=== PATIENT | male | born 1945 | race Caucasian/White ===

== ENCOUNTER 2017-12-16 20:06 | Emergency (ER) | payer MEDICARE ==
[~2017-12-16] VITALS: Ht 185.4 cm; Wt 87.5 kg
--- OUTSIDE RECORDS SUMMARY | 2017-12-16 20:09 | XMS REPORT ---
Author Author [facility] Address Unknown Phone Unavailable Care Team Providers Care Diving Board Assembler Name Role Phone MAYCO TREVIZO Unavailable Unavailable Problems This patient has no known problems. Allergies, Adverse Reactions, Alerts This patient has no known allergies or adverse reactions. Medications This patient has no known medications. Results Test Description Test Time Test Comments Text Results Atomic Results Result Comments TISSUE EXAM 2016-11-15 12:54:00 Surgical Pathology Report Case: [id number] Authorizing Provider: Malcolm Trevizo MD Collected: 11/06/2016 1032 Ord ering Location: [facility] Received: 11/06/2016 1135 SERVICES Pathologist: Georgia Love MD Specimen: Kidney, Left KIDNEY, LEFT, RADICAL NEPHRECTOMY: - RENAL CELL CARCINOMA, CLEAR CELL TYPE, BENY NUCLEAR GRADE 2, TUMOR FOCALLY PRESENT IN RENAL SINUS ADIPOSE TISSUE (SEE COMMENT) - GREATEST DIMENSION: 7.5CM - NEGATIVE FOR LYMPHOVASCULAR INVASION - SURGICAL RESECTION MARGINS, FREE OF TUMOR - AJCC CLASSIFICATION (7TH EDITION) pT3a, Nx, Mx (SEE SYNOPTIC REPORT) Signing Pathologist Direct Phone Line: [phone] signed by Georgia Love MD on 11/15/2016 at 12:54 PMA small microscopic focus of tumor cells with surrounding capsule are located in the renal sinus adipose tissue (A11). This is best interpreted as extension into sinus fat. However, less likely, this could also represent tumor in a large vessel/vein. Intradepartmental consultation: Dr. Demarco Mario has reviewed the slide A11 and concurs with the interpretation.KIDNEY: Nephrectomy, Partial or Radical (Kidney Res - All Specimens) Specimen Site: Kidney structureSPECIMEN Procedure: Radical nephrectomy Specimen Laterality: Left Tumor Site: Lower pole Tumor Focality: Unifocal Macroscopic Extent of Tumor: Tumor limited to kidneyTUMOR Histologic Type: Clear cell renal cell carcinoma Sarcomatoid Features: Not identified Histologic Grade (Beny Nuclear Grade): G2: Nuclei slightly irregular, approximately 15 microns; nucleoli evidentEXTENT Tumor Size (largest tumor if multiple): Greatest dimension (cm): 7.5 cm Additional Dimension (cm): 6 cm Additional Dimension (cm): 5.5 cm Microscopic Tumor Extension: Tumor extension into renal sinusMARGINS Margin Status: Margins uninvolved by invasive carcinomaACCESSORY FINDINGS Tumor Necrosis (any amount): Not identified Lymph-Vascular Invasion: Not identifiedSTAGE (pTNM) Primary Tumor (pT): pT3a: Tumor grossly extends into the renal vein or its segmental (muscle containing) branches, or tumor invades perirenal and / or renal sinus fat but not beyond Gerota's fascia Regional Lymph Nodes (pN): pNX: Regional lymph nodes cannot be assessed Status of Regional Lymph Nodes: No nodes submitted or found Distant Metastasis (pM): Not [id number] kidney tumorLeft kidneyReceived fresh labeled "kidney, left" is an 845 gm, 23.0 x 10.0 x 9.0 cm left radical nephrectomy specimen with an attached 9.0 cm in length x 0.5 cm in diameter ureter. The adrenal gland is not present. The kidney itself m easures 11.0 x 8.0 x 3.0 cm. The kidney is bivalved to reveal a 7.5 x 6.0 x 5.5 cm ill-defined yellow-gold to navarrete-white, rubbery, lobulated mass in the lower pole. The mass abuts the capsule but does not appear to invade into it or the attached perirenal adipose tissue. The mass abuts the pelvis but does not appear to invade into the calyceal system or renal sinus. The surrounding uninvolved renal parenchyma is dark brown, homogeneous, dense and unremarkable. No other discrete masses are identified. No lymph nodes are identified. Section code: A1, parallel ureteral and vascular resection margin; A2-A6, automotive leasing sales representative sections of mass abutting capsule; A7-10, mass adjacent fat; A11, automotive leasing sales representative section of mass abutting pelvis and calyceal system; A12-A13, automotive leasing sales representative sections of mass with uninvolved parenchyma; A14-A16, automotive leasing sales representative sections of renal sinus; A17-A18, uninvolved parenchyma. DB/plPerformed. CBC W/PLT COUNT & AUTO DIFFERENTIAL 2016-11-14 12:11:00 WHITE BLOOD CELL COUNT (BEAKER) (test nucv=802) 11.0 K/ L 3.5-10.5 RED BLOOD CELL COUNT (BEAKER) (test jxfc=301) 3.63 M/ L 4.63-6.08 HEMOGLOBIN (BEAKER) (test hdtp=375) 11.5 GM/DL 13.7-17.5 HEMATOCRIT (BEAKER) (test vmjj=443) 34.0 % 40.1-51.0 MEAN CORPUSCULAR VOLUME (BEAKER) (test leyz=150) 93.7 fL 79.0-92.2 MEAN CORPUSCULAR HEMOGLOBIN (BEAKER) (test iago=813) 31.7 pg 25.7-32.2 MEAN CORPUSCULAR HEMOGLOBIN CONC (BEAKER) (test kids=319) 33.8 GM/DL 32.3-36.5 RED CELL DISTRIBUTION WIDTH (BEAKER) (test pwox=150) 13.9 % 11.6-14.4 PLATELET COUNT (BEAKER) (test ghfb=016) 356 K/CU MM 150-450 MEAN PLATELET VOLUME (BEAKER) (test tbht=014) 9.1 fL 9.4-12.4 NUCLEATED RED BLOOD CELLS (BEAKER) (test pvre=958) 0 /100 WBC 0-0 NEUTROPHILS RELATIVE PERCENT (BEAKER) (test zvvb=881) 55 % LYMPHOCYTES RELATIVE PERCENT (BEAKER) (test olec=160) 28 % MONOCYTES RELATIVE PERCENT (BEAKER) (test iiwc=337) 13 % EOSINOPHILS RELATIVE PERCENT (BEAKER) (test xvwz=447) 3 % BASOPHILS RELATIVE PERCENT (BEAKER) (test yiqr=589) 0 % NEUTROPHILS ABSOLUTE COUNT (BEAKER) (test jnkg=201) 6.06 K/ L 1.78-5.38 LYMPHOCYTES ABSOLUTE COUNT (BEAKER) (test huai=815) 3.04 K/ L 1.32-3.57 MONOCYTES ABSOLUTE COUNT (BEAKER) (test yzoy=775) 1.40 K/ L 0.30-0.82 EOSINOPHILS ABSOLUTE COUNT (BEAKER) (test telp=874) 0.27 K/ L 0.04-0.54 BASOPHILS ABSOLUTE COUNT (BEAKER) (test yxuy=036) 0.04 K/ L 0.01-0.08 IMMATURE GRANULOCYTES-RELATIVE PERCENT (BEAKER) (test iyks=2895) 2 % 0-1 (MANUAL DIFFERENTIAL)2016-11-14 12:11:00* Test Item Value Reference Range Comments TOTAL COUNTED (BEAKER) (test nvya=2039) WBC MORPHOLOGY (BEAKER) (test leig=070) Normal PLT MORPHOLOGY (BEAKER) (test uuhu=862) Normal ANISOCYTOSIS (BEAKER) (test rhik=534) 1+ few POLYCHROMATOPHILLIC RBCS(BEAKER) (test uujw=048) 1+ few BASIC METABOLIC [id number] 06:23:00* Test Item Value Reference Range Comments SODIUM (BEAKER) (test tarx=840) 135 meq/L 136-145 POTASSIUM (BEAKER) (test xyhp=862) 3.4 meq/L 3.5-5.1 CHLORIDE (BEAKER) (test bjyz=564) 103 meq/L 98-107 CO2 (BEAKER) (test bgou=905) 26 meq/L 22-29 BLOOD UREA NITROGEN (BEAKER) (test awyb=549) 11 mg/dL 7-21 CREATININE (BEAKER) (test rcik=799) 0.87 mg/dL 0.57-1.25 GLUCOSE RANDOM (BEAKER) (test qcxa=718) 111 mg/dL 70-105 CALCIUM (BEAKER) (test qexd=204) 8.1 mg/dL 8.4-10.2 EGFR (BEAKER) (test uhsl=7132) 86 mL/min/1.73 sq m ESTIMATED GFR IS NOT ACCURATE CREATININE CLEARANCE IN PREDICTING GLOMERULAR FILTRATION RATE. ESTIMATED GFR IS NOT APPLICABLE FOR DIALYSIS PATIENTS. BASIC METABOLIC [id number] 05:56:00* Test Item Value Reference Range Comments SODIUM (BEAKER) (test zlps=085) 135 meq/L 136-145 POTASSIUM (BEAKER) (test yiam=058) 2.9 meq/L 3.5-5.1 CHLORIDE (BEAKER) (test glcy=135) 99 meq/L 98-107 CO2 (BEAKER) (test wvtm=066) 30 meq/L 22-29 BLOOD UREA NITROGEN (BEAKER) (test vmnp=611) 12 mg/dL 7-21 CREATININE (BEAKER) (test cuxf=985) 0.85 mg/dL 0.57-1.25 GLUCOSE RANDOM (BEAKER) (test cktb=101) 113 mg/dL 70-105 CALCIUM (BEAKER) (test tscz=533) 8.3 mg/dL 8.4-10.2 EGFR (BEAKER) (test luia=0250) 88 mL/min/1.73 sq m ESTIMATED GFR IS NOT ACCURATE CREATININE CLEARANCE IN PREDICTING GLOMERULAR FILTRATION RATE. ESTIMATED GFR IS NOT APPLICABLE FOR DIALYSIS PATIENTS. CBC W/PLT COUNT & AUTO [id number] 05:28:00* Test Item Value Reference Range Comments WHITE BLOOD CELL COUNT (BEAKER) (test uplf=569) 11.8 K/ L 3.5-10.5 RED BLOOD CELL COUNT (BEAKER) (test uhte=787) 3.82 M/ L 4.63-6.08 HEMOGLOBIN (BEAKER) (test hbsp=411) 12.2 GM/DL 13.7-17.5 HEMATOCRIT (BEAKER) (test mbkj=311) 35.5 % 40.1-51.0 MEAN CORPUSCULAR VOLUME (BEAKER) (test nmln=776) 92.9 fL 79.0-92.2 MEAN CORPUSCULAR HEMOGLOBIN (BEAKER) (test glww=136) 31.9 pg 25.7-32.2 MEAN CORPUSCULAR HEMOGLOBIN CONC (BEAKER) (test cucr=289) 34.4 GM/DL 32.3-36.5 RED CELL DISTRIBUTION WIDTH (BEAKER) (test njte=517) 13.6 % 11.6-14.4 PLATELET COUNT (BEAKER) (test qtgn=351) 351 K/CU MM 150-450 MEAN PLATELET VOLUME (BEAKER) (test pibi=696) 9.2 fL 9.4-12.4 NUCLEATED RED BLOOD CELLS (BEAKER) (test whrc=417) 0 /100 WBC 0-0 NEUTROPHILS RELATIVE PERCENT (BEAKER) (test nhss=057) 63 % LYMPHOCYTES RELATIVE PERCENT (BEAKER) (test tgxr=977) 21 % MONOCYTES RELATIVE PERCENT (BEAKER) (test ylkg=562) 13 % EOSINOPHILS RELATIVE PERCENT (BEAKER) (test ndpd=059) 2 % BASOPHILS RELATIVE PERCENT (BEAKER) (test ucqj=306) 0 % NEUTROPHILS ABSOLUTE COUNT (BEAKER) (test uqdb=896) 7.35 K/ L 1.78-5.38 LYMPHOCYTES ABSOLUTE COUNT (BEAKER) (test epuu=384) 2.47 K/ L 1.32-3.57 MONOCYTES ABSOLUTE COUNT (BEAKER) (test vxin=667) 1.52 K/ L 0.30-0.82 EOSINOPHILS ABSOLUTE COUNT (BEAKER) (test ryis=988) 0.24 K/ L 0.04-0.54 BASOPHILS ABSOLUTE COUNT (BEAKER) (test igva=274) 0.04 K/ L 0.01-0.08 IMMATURE GRANULOCYTES-RELATIVE PERCENT (BEAKER) (test zfjv=4229) 1 % 0-1 BASIC METABOLIC [id number] 07:05:00* Test Item Value Reference Range Comments SODIUM (BEAKER) (test fmvv=999) 132 meq/L 136-145 POTASSIUM (BEAKER) (test cobp=977) 3.0 meq/L 3.5-5.1 CHLORIDE (BEAKER) (test kcfu=207) 95 meq/L 98-107 CO2 (BEAKER) (test mhvq=787) 28 meq/L 22-29 BLOOD UREA NITROGEN (BEAKER) (test ccqh=798) 14 mg/dL 7-21 CREATININE (BEAKER) (test jpia=515) 0.95 mg/dL 0.57-1.25 GLUCOSE RANDOM (BEAKER) (test xfmh=577) 99 mg/dL 70-105 CALCIUM (BEAKER) (test pjny=535) 8.5 mg/dL 8.4-10.2 EGFR (BEAKER) (test oshc=2819) 78 mL/min/1.73 sq m ESTIMATED GFR IS NOT ACCURATE CREATININE CLEARANCE IN PREDICTING GLOMERULAR FILTRATION RATE. ESTIMATED GFR IS NOT APPLICABLE FOR DIALYSIS PATIENTS. CBC W/PLT COUNT & AUTO [id number] 07:05:00* Test Item Value Reference Range Comments WHITE BLOOD CELL COUNT (BEAKER) (test guec=193) 12.5 K/ L 3.5-10.5 RED BLOOD CELL COUNT (BEAKER) (test invk=358) 3.75 M/ L 4.63-6.08 HEMOGLOBIN (BEAKER) (test okjp=305) 12.0 GM/DL 13.7-17.5 HEMATOCRIT (BEAKER) (test kvte=911) 35.1 % 40.1-51.0 MEAN CORPUSCULAR VOLUME (BEAKER) (test uzvd=224) 93.6 fL 79.0-92.2 MEAN CORPUSCULAR HEMOGLOBIN (BEAKER) (test ygql=165) 32.0 pg 25.7-32.2 MEAN CORPUSCULAR HEMOGLOBIN CONC (BEAKER) (test qbhu=974) 34.2 GM/DL 32.3-36.5 RED CELL DISTRIBUTION WIDTH (BEAKER) (test pcbz=254) 13.6 % 11.6-14.4 PLATELET COUNT (BEAKER) (test csdw=756) 326 K/CU MM 150-450 MEAN PLATELET VOLUME (BEAKER) (test nwnh=857) 9.1 fL 9.4-12.4 NUCLEATED RED BLOOD CELLS (BEAKER) (test imtt=591) 0 /100 WBC 0-0 NEUTROPHILS RELATIVE PERCENT (BEAKER) (test ywhp=302) 70 % LYMPHOCYTES RELATIVE PERCENT (BEAKER) (test uqlp=332) 16 % MONOCYTES RELATIVE PERCENT (BEAKER) (test uaxj=733) 12 % EOSINOPHILS RELATIVE PERCENT (BEAKER) (test qjlb=118) 1 % BASOPHILS RELATIVE PERCENT (BEAKER) (test dteb=820) 0 % NEUTROPHILS ABSOLUTE COUNT (BEAKER) (test ymrm=485) 8.74 K/ L 1.78-5.38 LYMPHOCYTES ABSOLUTE COUNT (BEAKER) (test xgmg=137) 1.98 K/ L 1.32-3.57 MONOCYTES ABSOLUTE COUNT (BEAKER) (test nhhi=294) 1.53 K/ L 0.30-0.82 EOSINOPHILS ABSOLUTE COUNT (BEAKER) (test otgr=393) 0.16 K/ L 0.04-0.54 BASOPHILS ABSOLUTE COUNT (BEAKER) (test hkcx=208) 0.02 K/ L 0.01-0.08 IMMATURE GRANULOCYTES-RELATIVE PERCENT (BEAKER) (test tnzu=7845) 1 % 0-1 CT, [id number] 05:03:00FINAL REPORT CT, ABDOMEN \\T\\ PELVIS, WITHOUT IV CONTRAST INDICATION: "Bowel obstruction, low-gradeConcern for bowel perforation. Discussed with general surgery and radiology Dr. Fish. Please do with RECTAL contrast. Please page [phone] with any concerns/questions. Please do first thing in AM for appropriate ti" COMPARISON: CT abdomen and pelvis from yesterday TECHNIQUE: Noncontrast axially oriented images were obtained from the diaphragms through the pelvis. Coronal and sagittal reformats were provided. DOSE REDUCTION: Dose modulation, iterative reconstruction, and/or weight-based adjustment of the mA/kV was utilized to reduce the radiation dose to as low as reasonably achievable. FINDINGS: Stable small bilateral pleural effusions with adjacent airspace disease, right greater than left. Postoperative changes from a left-sided nephrectomy. The oral contrast from the prior CT has passed through to the rectum. There is no extraluminal contrast and the left retroperitoneal collection with multiple foci of air almost certainly represents a normal postoperative collection and not sequelae of a bowel perforation.All other findings are unchanged compared to the prior exam with prominent air-filled, but nondilated loops of colon which likely reflect a mild ileus. No focal lytic or destructive bony process. IMP RESSION:The left retroperitoneal collection is almost certainly a normal postope rative collection. No bowel perforation. Signed: Castro Riuz MDReport Verifi ed Date/Time: 11/12/2016 05:03:23 Reading Location: [facility] C013X Ortho Consult Reading Room 05: 03 AM [id number] 22:50:00* Test Item Value Reference Range Comments LIPASE (BEAKER) (test jpbx=392) 8 U/L 8-78 [id number] 22:50:00* Test Item Value Reference Range Comments AMYLASE (BEAKER) (test bzpg=859) 22 U/L 25-125 COMPREHENSIVE METABOLIC [id number] 22:50:00* Test Item Value Reference Range Comments TOTAL PROTEIN (BEAKER) (test vffe=576) 6.6 gm/dL 6.0-8.3 ALBUMIN (BEAKER) (test oggm=6335) 3.2 g/dL 3.5-5.0 ALKALINE PHOSPHATASE (BEAKER) (test bxeq=603) 145 U/L 40-150 BILIRUBIN TOTAL (BEAKER) (test yvms=961) 0.9 mg/dL 0.2-1.2 SODIUM (BEAKER) (test mick=077) 129 meq/L 136-145 POTASSIUM (BEAKER) (test tuoa=787) 2.8 meq/L 3.5-5.1 CHLORIDE (BEAKER) (test ewvw=920) 92 meq/L 98-107 CO2 (BEAKER) (test hyob=512) 29 meq/L 22-29 BLOOD UREA NITROGEN (BEAKER) (test sxtq=220) 14 mg/dL 7-21 CREATININE (BEAKER) (test bcjp=520) 0.85 mg/dL 0.57-1.25 GLUCOSE RANDOM (BEAKER) (test acxp=973) 102 mg/dL 70-105 CALCIUM (BEAKER) (test jupc=517) 8.5 mg/dL 8.4-10.2 AST (SGOT) (BEAKER) (test eaah=327) 23 U/L 5-34 ALT (SGPT) (BEAKER) (test emop=439) 29 U/L 6-55 EGFR (BEAKER) (test mjfq=9019) 88 mL/min/1.73 sq m ESTIMATED GFR IS NOT ACCURATE CREATININE CLEARANCE IN PREDICTING GLOMERULAR FILTRATION RATE. ESTIMATED GFR IS NOT APPLICABLE FOR DIALYSIS PATIENTS. CBC W/PLT COUNT & AUTO [id number] 22:33:00* Test Item Value Reference Range Comments WHITE BLOOD CELL COUNT (BEAKER) (test wrmk=598) 12.3 K/ L 3.5-10.5 RED BLOOD CELL COUNT (BEAKER) (test hfrs=089) 3.80 M/ L 4.63-6.08 HEMOGLOBIN (BEAKER) (test fxvn=029) 12.1 GM/DL 13.7-17.5 HEMATOCRIT (BEAKER) (test jdoj=259) 35.1 % 40.1-51.0 MEAN CORPUSCULAR VOLUME (BEAKER) (test hrnq=031) 92.4 fL 79.0-92.2 MEAN CORPUSCULAR HEMOGLOBIN (BEAKER) (test wjan=104) 31.8 pg 25.7-32.2 MEAN CORPUSCULAR HEMOGLOBIN CONC (BEAKER) (test ekuc=494) 34.5 GM/DL 32.3-36.5 RED CELL DISTRIBUTION WIDTH (BEAKER) (test djzj=935) 13.3 % 11.6-14.4 PLATELET COUNT (BEAKER) (test nrit=927) 318 K/CU MM 150-450 MEAN PLATELET VOLUME (BEAKER) (test hhxy=877) 9.1 fL 9.4-12.4 NUCLEATED RED BLOOD CELLS (BEAKER) (test nkct=873) 0 /100 WBC 0-0 NEUTROPHILS RELATIVE PERCENT (BEAKER) (test qhaq=469) 72 % LYMPHOCYTES RELATIVE PERCENT (BEAKER) (test vbic=791) 14 % MONOCYTES RELATIVE PERCENT (BEAKER) (test vpon=361) 12 % EOSINOPHILS RELATIVE PERCENT (BEAKER) (test vxuf=569) 1 % BASOPHILS RELATIVE PERCENT (BEAKER) (test ukak=829) 0 % NEUTROPHILS ABSOLUTE COUNT (BEAKER) (test azgz=342) 8.80 K/ L 1.78-5.38 LYMPHOCYTES ABSOLUTE COUNT (BEAKER) (test wjwo=299) 1.75 K/ L 1.32-3.57 MONOCYTES ABSOLUTE COUNT (BEAKER) (test uudq=245) 1.48 K/ L 0.30-0.82 EOSINOPHILS ABSOLUTE COUNT (BEAKER) (test elmu=332) 0.07 K/ L 0.04-0.54 BASOPHILS ABSOLUTE COUNT (BEAKER) (test lvyx=030) 0.04 K/ L 0.01-0.08 IMMATURE GRANULOCYTES-RELATIVE PERCENT (BEAKER) (test qanr=3017) 1 % 0-1 CT, [id number] 22:07:00Significant distention with dilated small and large bowel on AAS. Please give oral contrast for study.Addendum BeginsREPORT STATUS:A I reviewed the case with the urologist, Dr. Trevizo, who explained that Surgicel was placed in the nephrectomy bed. The feculent material, described in the original report, is at the superior part of the retroperitoneal collection near the left nephrectomy bed and may in fact represent Surgicel intermixed with blood. The mid and lower part of the re troperitoneal collection are low density and may represent a sterile postoperati ve collection. As discussed with Dr. Trevizo, a repeat CT exam in approximately 12 ho urs, may be beneficial to see if any contrast from the colon has passed into the retroperitoneal collection. If contrast from the colon has not passed into the retroperitoneal collection a CT exam with rectally administered contrast would b e more sensitive. Signed: Lima Fish MDReport Verified Date/Time: 017 22:07:17 Reading Location: [facility] C013 Consult Reading RoomAddendum EndsFIN AL REPORT INDICATION:71-year-old male with abdominal dist ention. COMPARISON: None. TECHNIQUE: CT of the Abdomen and Pelvis WITHOUT intrav enous contrast. Enteric contrast was used. The exam was performed according to o ur department dose-optimization protocol, which includes automated exposure cont rol, adjustments of mA and kV according to patient size. Iterative reconstructio ns are also sometimes employed. FINDINGS:Patient is status post left nephrectomy . In the left retroperitoneal fat inferior to the nephrectomy bed and lateral to the left psoas muscle is a oblong collection of feculent material. The collecti on measures approximately 13 cm in length and up to 5 x 4 cm in cross-section. O n coronal image 64 there is suggestion of a communication between the collection and the left colon. Moderate increase in stool and gas burden in the right colon and transverse colon is noted. There is no bowel obstruction. No pneumoperiton eum. Liver, gallbladder, pancreas, and spleen are unremarkable. No upper abdomin al lymphadenopathy is demonstrated. 2 cm exophytic cyst of the interpole right k idney is noted. No gross renal mass or hydronephrosis. Adrenal glands are unrema rkable. Bladder was mildly distended the time of imaging and no bladder wall abn ormality is demonstrated. Small amount air in the bladder is presumably from anibal or instrumentation. Prostate gland is normal in size. No pelvic or retroperitone al lymphadenopathy is demonstrated. There is scattered moderate atherosclerotic plaque of the abdominal aorta. Abdominal aorta and iliac arteries are normal in caliber. Soft tissues are notable for moderate stranding of the suprapubic fat and small fat-containing periumbilical hernia. No suspicious osseous lesion is d emonstrated. At L5-S1 there is moderate to severe facet arthropathy. At L5-S1 an d L4-5 there is moderate to severe disc space loss and endplate spurring. Partia l imaging of the lower thorax demonstrates bilateral small pleural effusions. IM PRESSION: Status post left nephrectomy. Left retroperitoneal collection of fecul ent material with communication between the collection and the left colon. Sign ed: Lima Fish MDReport Verified Date/Time: 11/11/2016 20:06:23 Reading L ocation: [facility] C013W Consult Reading Room , ABDOMEN SERIES W/ UPRIGHT PA [id number] 13:47:00Reason for exam:->persistent ileusFINAL REPORT Four views abdomen and chest compared to November 07 Discussion: Bilateral apical pleural-parenchymal scarring and probable basilar atelectasis are again noted. Atelectasis may be minimally improved. I could not exclude small effusions. No pneumothorax. There is prominent air-filled large bowel throughout the abdomen. Conspicuous air-filled small bowel loops are also noted in the right abdomen. No gross evidence of free intraperitoneal air. Phleboliths are seen in the pelvis. IMPRESSIONS: Grossly similar bowel gas pattern. Signed: James Braga Verified Date/Time: 11/11/2016 13:47:25 Reading Location: [facility] C013W Consult Reading Room GLOBIN AND [id number] 11:11:00* Test Item Value Reference Range Comments HEMOGLOBIN (BEAKER) (test hgza=503) 12.5 GM/DL 13.7-17.5 HEMATOCRIT (BEAKER) (test ldxi=969) 36.0 % 40.1-51.0 RAD, CHEST, 1 VIEW, NON [id number] 08:46:00Reason for exam:->decreased 02 satsShould this be performed at the bedside?->YesFINAL REPORT Chest, one view. HISTORY: Hypoxia COMPARISON: Chest and abdominal radiographs from 11/07/2016 IMPRESSION: No significant interval change. Trace left pleural effusion and mild interstitial edema. Unchanged right infrahilar atelectasis. No new focal consolidation. No identifiable pneumothorax. Cardiomediastinal silhouette is grossly unremarkable. Signed: John De Dios Verified Date/Time: 11/09/2016 08:46:20 Reading Location: [facility] C013Y CT Body Reading Room Electronically signed by: JOHN DE DIOS on 0 11/09/2016 08:46 AM HEMOGLOBIN AND [id number] 07:10:00* Test Item Value Reference Range Comments HEMOGLOBIN (BEAKER) (test nagk=896) 11.8 GM/DL 13.7-17.5 HEMATOCRIT (BEAKER) (test npon=468) 35.3 % 40.1-51.0 BASIC METABOLIC [id number] 06:52:00* Test Item Value Reference Range Comments SODIUM (BEAKER) (test kazf=140) 132 meq/L 136-145 POTASSIUM (BEAKER) (test mfij=872) 3.8 meq/L 3.5-5.1 CHLORIDE (BEAKER) (test gjjt=576) 100 meq/L 98-107 CO2 (BEAKER) (test vtuv=754) 25 meq/L 22-29 BLOOD UREA NITROGEN (BEAKER) (test wpwk=465) 13 mg/dL 7-21 CREATININE (BEAKER) (test ovhj=799) 1.04 mg/dL 0.57-1.25 GLUCOSE RANDOM (BEAKER) (test lbzr=314) 111 mg/dL 70-105 CALCIUM (BEAKER) (test hsvo=611) 8.5 mg/dL 8.4-10.2 EGFR (BEAKER) (test drab=3369) 70 mL/min/1.73 sq m ESTIMATED GFR IS NOT ACCURATE CREATININE CLEARANCE IN PREDICTING GLOMERULAR FILTRATION RATE. ESTIMATED GFR IS NOT APPLICABLE FOR DIALYSIS PATIENTS. BASIC METABOLIC [id number] 05:24:00* Test Item Value Reference Range Comments SODIUM (BEAKER) (test mxwh=378) 134 meq/L 136-145 POTASSIUM (BEAKER) (test mdrd=706) 3.9 meq/L 3.5-5.1 CHLORIDE (BEAKER) (test zbuv=282) 103 meq/L 98-107 CO2 (BEAKER) (test rfcg=714) 23 meq/L 22-29 BLOOD UREA NITROGEN (BEAKER) (test jnql=688) 12 mg/dL 7-21 CREATININE (BEAKER) (test ajjs=275) 1.12 mg/dL 0.57-1.25 GLUCOSE RANDOM (BEAKER) (test bjml=893) 121 mg/dL 70-105 CALCIUM (BEAKER) (test ejir=306) 8.3 mg/dL 8.4-10.2 EGFR (BEAKER) (test wyej=7107) 64 mL/min/1.73 sq m ESTIMATED GFR IS NOT ACCURATE CREATININE CLEARANCE IN PREDICTING GLOMERULAR FILTRATION RATE. ESTIMATED GFR IS NOT APPLICABLE FOR DIALYSIS PATIENTS. HEMOGLOBIN AND [id number] 04:59:00* Test Item Value Reference Range Comments HEMOGLOBIN (BEAKER) (test csqt=708) 12.2 GM/DL 13.7-17.5 HEMATOCRIT (BEAKER) (test llkh=870) 36.1 % 40.1-51.0 RAD, ABDOMEN SERIES W/ UPRIGHT PA [id number] 16:52:00Reason for exam:-> acute abdominal series. n/v, distensionFINAL REPORT TECHNIQUE: Abdominal series with upright chest performed on 11/07/2016 CLINICAL HISTORY: Acute abdominal series, n/v distention COMPARISON STUDY: None FINDINGS: No air-filled, dilated loops of small bowel to suggest obstruction. There is gaseous distention of the colon. Of not all the colon is seen on the left and all the small bowel is seen on the right. No free intraperitoneal air. No abnormal soft tissue or calcification. The bones are unremarkable. Biapical nodular calcification is seen. There is atelectasis in the right lung base. Trace bilateral pleural effusions. No pneumothorax. Cardiomediastinal silhouette is normal in size. No pulmonary edema. Impression: 1. Gaseous distention of the colon. Of not all the colon is seen on the left and all the small bowel is seen on the right suggesting a malrotation. 2. Trace bilateral pleural effusions. Signed: Alexandrea Garzaeport Verified Date/Time: 11/07/2016 16:52:43 Reading Location: [facility] Radiology Reading Room C METABOLIC [id number] 05:37:00* Test Item Value Reference Range Comments SODIUM (BEAKER) (test akah=448) 136 meq/L 136-145 POTASSIUM (BEAKER) (test gxlg=983) 4.1 meq/L 3.5-5.1 CHLORIDE (BEAKER) (test lrul=612) 108 meq/L 98-107 CO2 (BEAKER) (test obgv=959) 22 meq/L 22-29 BLOOD UREA NITROGEN (BEAKER) (test sajq=523) 14 mg/dL 7-21 CREATININE (BEAKER) (test teqq=889) 1.12 mg/dL 0.57-1.25 GLUCOSE RANDOM (BEAKER) (test imdm=543) 120 mg/dL 70-105 CALCIUM (BEAKER) (test mvrg=700) 7.7 mg/dL 8.4-10.2 EGFR (BEAKER) (test cpiy=3556) 64 mL/min/1.73 sq m ESTIMATED GFR IS NOT ACCURATE CREATININE CLEARANCE IN PREDICTING GLOMERULAR FILTRATION RATE. ESTIMATED GFR IS NOT APPLICABLE FOR DIALYSIS PATIENTS. HEMOGLOBIN AND [id number] 05:07:00* Test Item Value Reference Range Comments HEMOGLOBIN (BEAKER) (test ylyj=319) 10.9 GM/DL 13.7-17.5 HEMATOCRIT (BEAKER) (test uwme=890) 33.2 % 40.1-51.0 BASIC METABOLIC [id number] 12:21:00* Test Item Value Reference Range Comments SODIUM (BEAKER) (test vgew=019) 138 meq/L 136-145 POTASSIUM (BEAKER) (test xjrp=228) 4.3 meq/L 3.5-5.1 CHLORIDE (BEAKER) (test pqnk=545) 108 meq/L 98-107 CO2 (BEAKER) (test lxpl=430) 23 meq/L 22-29 BLOOD UREA NITROGEN (BEAKER) (test ibge=833) 13 mg/dL 7-21 CREATININE (BEAKER) (test wwkx=649) 0.93 mg/dL 0.57-1.25 GLUCOSE RANDOM (BEAKER) (test ctta=546) 145 mg/dL 70-105 CALCIUM (BEAKER) (test lzot=761) 7.7 mg/dL 8.4-10.2 EGFR (BEAKER) (test klmz=8744) 80 mL/min/1.73 sq m ESTIMATED GFR IS NOT ACCURATE CREATININE CLEARANCE IN PREDICTING GLOMERULAR FILTRATION RATE. ESTIMATED GFR IS NOT APPLICABLE FOR DIALYSIS PATIENTS. HEMOGLOBIN AND [id number] 12:14:00* Test Item Value Reference Range Comments HEMOGLOBIN (BEAKER) (test cxnt=063) 11.5 GM/DL 13.7-17.5 HEMATOCRIT (BEAKER) (test uiyr=298) 34.5 % 40.1-51.0
--- OUTSIDE RECORDS SUMMARY | 2017-12-16 20:09 | XMS REPORT | Clinical Summary ---
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 Disp. Refills Start End Date Status Date atorvastatin (LIPITOR) 10 Take 10 mg by mouth Active MG tablet daily. esomeprazole (NEXIUM) 20 Take 20 mg by mouth Active MG capsule daily. acetaminophen-codeine Take 1 tablet by mouth 30 tablet 0 11/09/19 Active (TYLENOL #3) 300-30 mg every 4 (four) hours as 17 per tablet needed for Pain Do not combine with over the counter Tylenol. Max Daily Amount: 6 tablets docusate sodium (COLACE) Take 1 capsule (100 mg 50 capsule 0 11/09/19 Active 100 MG capsule total) by mouth 2 (two) 17 times daily. atenolol (TENORMIN) 25 MG Take 2 tablets (50 mg 60 tablet 0 11/15/19 Active tablet total) by mouth daily. 17 hydroCHLOROthiazide Take 2 capsules (25 mg 60 capsule 0 11/16/19 11/16/19 (MICROZIDE) 12.5 mg total) by mouth daily. 17 18 capsule Active Problems Problem Noted Date Kidney tumor 11/06/2016 Renal mass 11/06/2016 Social History Tobacco Use Types Packs/Day Years Used Date Never Smoker Smokeless Tobacco: Never Used Alcohol Use Drinks/Week oz/Week Comments No Sex Assigned at Date Recorded Not on file Last Filed Vital Signs Not on file Plan of Treatment Not on file Results Not on fileafter 12/15/2016
[2017-12-16 21:02] LABS: BASOPHILS # (AUTO) 0.1 (0.0-0.1); BASOPHILS % 0.6 % (0.0-1.0); EOSINOPHILS # (AUTO) 0.1 (0.0-0.4); EOSINOPHILS % 0.7 % (0.0-6.0); HEMATOCRIT 42.3 % (38.2-49.6); HEMOGLOBIN 14.8 g/dL (14.0-18.0); LYMPHOCYTES % 29.4 % (18.0-39.1); MEAN CORPUSCULAR HEMOGLOBIN 32.4 pg (28-32); MEAN CORPUSCULAR VOLUME 92.6 fL (81-99); MONOCYTES # (AUTO) 1.1 (0.2-0.8); MONOCYTES % 11.2 % (4.4-11.3); NEUTROPHILS # (AUTO) 5.9 (2.1-6.9); NEUTROPHILS % 57.8 % (38.7-80.0); PLATELET COUNT 335 x10e3/uL (140-360); RED BLOOD COUNT 4.57 x10e6/uL (4.3-5.7); RED CELL DISTRIBUTION WIDTH 12.9 % (11.7-14.4)
--- NOTE | 2017-12-16 21:09 | Diagnostic Imaging Report ---
CHEST SINGLE (PORTABLE), 12/16/2017 8:19 PM Technique: CHEST SINGLE (PORTABLE) Comparison: None available. Clinical history: Dizziness Findings: Normal cardiomediastinal silhouette for technique. Aortic calcifications. No consolidation or edema. Mild biapical pleural thickening. There is no effusion or pneumothorax. Impression: 1. Lines/Tubes: None 2. No acute abnormality. Signed by: Dr Inga Feliciano MD on 12/16/2017 9:06 PM
[2017-12-16 21:13] LABS: INR 0.95; PROTHROMBIN TIME 13.6 seconds (11.9-14.5)
[2017-12-16 21:14] LABS: PARTIAL THROMBOPLASTIN TIME 26.5 seconds (23.8-35.5)
[2017-12-16 21:17] LABS: BILIRUBIN,URINE NEGATIVE (NEGATIVE); CLARITY,URINE SL CLOUDY (CLEAR); COLOR,URINE YELLOW (YELLOW); KETONES,URINE NEGATIVE (NEGATIVE); LEUKOCYTE ESTERASE ,URINE NEGATIVE (NEGATIVE); NITRITE,URINE NEGATIVE (NEGATIVE); PROTEIN,URINE DIPSTICK NEGATIVE (NEGATIVE); URINE UROBILINOGEN 0.2 mg/dL (0.2 - 1)
--- NOTE | 2017-12-16 21:18 | Diagnostic Imaging Report ---
EXAMINATION: Head CT without contrast. HISTORY:Dizziness. COMPARISON:None. TECHNIQUE: Multidetector axial images were obtained from the foramen magnum to the vertex without contrast. The images were reconstructed using brain and bone algorithms. Thin section brain images were reformatted into coronal and sagittal planes. Dose modulation, iterative reconstruction, and/or weight based adjustment of the mA/kV was utilized to reduce the radiation dose to as low as reasonably achievable. Intravenous contrast: None IMAGE QUALITY: Acceptable. FINDINGS: Skull/scalp: No lytic or blastic. lesions. No surgical changes. Parenchyma: Nonspecific bilateral frontoparietal confluent periventricular and patchy subcortical white matter hypodensity are likely related to small vessel ischemic changes. No acute hemorrhage, mass or acute major vascular territorial infarct. Arteries: No density suggestive of thrombosis. Dural sinuses: No abnormal density suggestive of thrombosis. Ventricles: Mild compensated dilatation due to volume loss. No hydrocephalus. Extra-axial spaces: No abnormal density. Brain volume: Mild generalized cerebral volume loss. Craniocervical junction: No mass, Chiari malformation, or basilar invagination. Sella: No mass. Paranasal/mastoid sinuses: Imaged portions unremarkable. IMPRESSION: 1. No acute intracranial abnormality, particularly no acute hemorrhage, mass or acute major vascular territorial infarct. 2. Moderate supratentorial white matter microvascular ischemic changes. 3. Mild generalized cerebral volume loss. Signed by: Dr. Margie Carlton M.D. on 12/16/2017 9:15 PM
[2017-12-16 21:25] LABS: ALANINE AMINOTRANSFERASE 61 IU/L (0-55); ALBUMIN 3.9 g/dL (3.5-5.0); ALKALINE PHOSPHATASE 62 IU/L (40-150); ANION GAP 14.5 mmol/L (8-16); BLOOD UREA NITROGEN 24 mg/dL (7-26); BUN/CREATININE RATIO 17 (6-25); CALCIUM 9.8 mg/dL (8.4-10.2); CARBON DIOXIDE 25 mmol/L (22-29); CHLORIDE 95 mmol/L (98-107); CREATINE KINASE 160 IU/L (30-200); CREATININE, SERUM 1.44 mg/dL (0.72-1.25); EST GLOMERULAR FILTRATION RATE 48 ML/MIN (60-); GLUCOSE 109 mg/dL (74-118); MAGNESIUM 2.1 MG/DL (1.3-2.1); POTASSIUM 3.5 mmol/L (3.5-5.1); SODIUM 131 mmol/L (136-145)
[2017-12-16 21:26] LABS: BACTERIA,URINE FEW /HPF; EPITHELIAL CELLS,URINE FEW /LPF; RBC,URINE 0-5 /HPF (0-5)
[2017-12-16 21:47] LABS: THYROID STIMULATING HORMONE 1.969 uIU/mL (0.350-4.940)
[2017-12-16] MEDS ORDERED: NIFEDIPINE 10 MG CAP PO ONE (22:56)
[2017-12-16] MEDS ORDERED: NIFEDIPINE 10 MG CAP PO STA (22:59)
[2017-12-17 00:37] VITALS: BP 157/85
== END 2017-12-16 23:34 | disposition home or self-care (01) ==
LOC: ER 20:06
DX: R42 Dizziness and giddiness (principal); R11.0 Nausea; I10 Essential (primary) hypertension
CPT/HCPCS: 36415; 70450; 71045; 80053; 81001; 82550; 82553; 83735; 84443; 84484; 85025; 85610; 85730; 87086; 93005; 99284

== ENCOUNTER 2019-09-05 20:23 | Emergency (ER) | payer MEDICARE ==
[~2019-09-05] VITALS: Ht 185.4 cm; Wt 87.5 kg
[2019-09-05] MEDS ORDERED: SODIUM CHLORIDE 0.9% 1000ML 1,000 ML IV SCH ×2 (21:00→21:45)
[2019-09-05] MEDS ORDERED: SODIUM CHLORIDE 0.9% 1000ML 1,000 ML ONE ×2 (21:14→21:44)
--- NOTE | 2019-09-05 23:01 | Emergency Department Note ---
History of Present Illnes History of Present Illness History of Present Illness This is a 74 year old male with a chief complaint of diarrhea. This started at 10 AM. It is watery with no blood no hematochezia and no melena. The patient has a 1 episode of vomiting. He states that he has had an occasional abdominal cramping but it has been mild. Took an Imodium about an hour prior to arrival but did not notice any improvement. He denies any fever or chills. He denies any sick contacts. He denies any contacts to COVID positive patients. He denies any cough. Positive problems and smelling or taste. He had some [place] food last night which he states could be the cause of his symptoms. He not been around anyone with similar symptoms. He denies any syncope. He denies any lightheadedness or dizziness. Does have some general fatigue and general malaise. No well water or recent antibiotics. No recent camping. 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: No Quality: few episodes of mild "crampy" abdominal pain Severity: severe Onset quality: sudden Timing of current episode: intermittent Progression: worsening Context: Denies recent surgery Associated symptoms: Reports loss of appetite, Reports malaise, Reports nausea/vomiting, Reports weakness (generalized weakness); Denies confusion, Denies chest pain, Denies cough, Denies diaphoresis, Denies fever/chills, Denies headaches, Denies rash (times one), Denies shortness of breath, Denies syncope Past Medical/Family History Physician Review I have reviewed the patient's past medical and family history. Any updates have been documented here. Past Medical History Past Medical History: Hypertension Past Surgical History: Back Surgery Other Surgery: BACK SURGERY Social History Smoking Cessation: Never Smoker Any Illegal Drug Use: No Other Last Tetanus: UNK Review of Systems Review of Systems Constitutional: Reports no symptoms EENTM: Reports as per HPI; Denies ear pain, Denies ear discharge Cardiovascular: Reports no symptoms Respiratory: Reports no symptoms Gastrointestinal: Reports diarrhea, Reports vomiting Genitourinary: Reports no symptoms; Denies dysuria Musculoskeletal: Reports no symptoms Integumentary: Reports no symptoms Neurological: Reports no symptoms Psychological: Reports no symptoms Hematological/Lymphatic: Denies easy bleeding, Denies easy bruising Review of other systems: All other systems negative Physical Exam Related Data Allergies: Coded Allergies: amlodipine (Verified Allergy, Unknown, 12/16/17) tramadol (Verified Allergy, Unknown, 09/05/19) Physical Exam CONSTITUTIONAL Constitutional: Present well-developed, Present well-nourished HENT HENT: Present normocephalic, Present atraumatic, Present mucosae dry, Present nose normal HENT L/R: Present left ext ear normal, Present right ext ear normal EYES NECK Neck: Present ROM normal, Present supple PULMONARY Pulmonary: Present effort normal, Present breath sounds normal; Absent respiratory distress CARDIOVASCULAR Cardiovascular: Present regular rhythm GASTROINTESTINAL Abdominal: Present soft, Present nontender GENITOURINARY SKIN Skin: Present warm, Present dry MUSCULOSKELETAL Musculoskeletal: Absent edema NEUROLOGICAL Neurological: Present alert, Present oriented x 3 PSYCHOLOGICAL Psychological: Present mood/affect normal Results Laboratory Laboratory comments Was 121, BUN 28, creatinine 2.2, CK 316, sodium 138, potassium 3.7, chloride 101, bicarbonate 24. WBC is 8.1 hemoglobin 14.8 hematocrit 45.1 platelets count is 338. BMP was repeated after 2 L of normal saline with a improvement of the BUN at 26 and a creatinine of 2.0. The potassium repeat was 3.9 Assessment & Plan Medical Decision Making MDM Differential diagnosis included but was not limited to Covid, gastroenteritis from viral bacterial or parasite. Reassessment Reassessment time: 22:56 Reassessment Patient had no diarrhea while in the ER. Offered admission to patient for IV hydration due to elevated creatinine, however patient requested to be discharged due to possible COVID exposure. I felt this was a reasonable given the patient was tolerating a by mouth fluid and Hydrated home. Patient was instructed to promptly follow up with his primary care physician for reevaluation and a repeat cr especially since the patient only has one kidney. Assessment & Plan Final Impression: (1) Diarrhea (2) Person under investigation for COVID-19 Depart Disposition: HOME, SELF-CARE CORETTA PEREZ MD Sep 05, 2019 21:05
== END 2019-09-05 23:04 | disposition home or self-care (01) ==
LOC: FSED 21:00
DX: R19.7 Diarrhea, unspecified (principal); R53.81 Other malaise; Z03.818 Encounter for observation for suspected exposure to other biological agents ruled out
CPT/HCPCS: 80053; 85025; 99283; J7030

== ENCOUNTER 2024-05-07 11:54 | Inpatient (IN) | payer MEDICARE ==
[~2024-05-07] VITALS: Ht 185.4 cm; Wt 87.5 kg
[2024-05-07] VITALS (9 sets, daily range): BP systolic 135–154; BP diastolic 77–80; PULSE 53–78; RESP 16–20; TEMP 97–97.9; O2SAT 96–100
[2024-05-07] MEDS: SODIUM CHLORIDE 0.9% 1000ML 1,000 ML IV STA ×2 (12:25)
[2024-05-07 12:31] LABS: BASOPHILS # (AUTO) 0.1 (0.0-0.1); BASOPHILS % 0.8 % (0.0-1.0); EOSINOPHILS # (AUTO) 1.5 (0.0-0.4); EOSINOPHILS % 14.2 % (0.0-6.0); HEMATOCRIT 38.1 % (38.2-49.6); LYMPHOCYTES # (AUTO) 1.8 (1.0-3.2); LYMPHOCYTES % 17.2 % (18.0-39.1); MEAN CORPUSCULAR HGB CONC 34.1 g/dL (31-35); MEAN CORPUSCULAR VOLUME 96.7 fL (81-99); MONOCYTES # (AUTO) 1.1 (0.2-0.8); MONOCYTES % 10.8 % (4.4-11.3); NEUTROPHILS # (AUTO) 5.9 (2.1-6.9); NEUTROPHILS % 56.5 % (38.7-80.0); PLATELET COUNT 375 x10e3/uL (140-360); RED BLOOD COUNT 3.94 x10e6/uL (4.3-5.7); RED CELL DISTRIBUTION WIDTH 13.5 % (11.7-14.4); WHITE BLOOD COUNT 10.39 x10e3/uL (4.8-10.8)
[2024-05-07 13:19] LABS: INR 0.98; PROTHROMBIN TIME 13.6 seconds (11.9-14.5)
[2024-05-07 13:20] LABS: PARTIAL THROMBOPLASTIN TIME 27.4 seconds (23.8-35.5)
[2024-05-07 13:28] LABS: ALBUMIN 3.5 g/dL (3.5-5.0); ALBUMIN/GLOBULIN RATIO 0.9 (0.8-2.0); ANION GAP 16.6 mmol/L (8-16); BILIRUBIN,TOTAL 0.8 mg/dL (0.2-1.2); CALCIUM 9.5 mg/dL (8.4-10.2); CREATININE, SERUM 2.15 mg/dL (0.72-1.25); POTASSIUM 3.6 mmol/L (3.5-5.1); TOTAL PROTEIN 7.4 g/dL (6.5-8.1)
[2024-05-07 14:04] LABS: CORONAVIRUS COVID-19 AG NEGATIVE (NEGATIVE); INFLUENZA A AG NEGATIVE (NEGATIVE); INFLUENZA B AG NEGATIVE (NEGATIVE)
[2024-05-07 15:20] LABS: CLARITY,URINE SL CLOUDY (CLEAR); COLOR,URINE YELLOW (YELLOW)
[2024-05-07 15:21] LABS: LEUKOCYTE ESTERASE ,URINE SMALL (NEGATIVE); NITRITE,URINE POSITIVE (NEGATIVE); PH,URINE 5.5 (5 - 7); PROTEIN,URINE DIPSTICK 2+ (NEGATIVE)
[2024-05-07 15:22] LABS: BILIRUBIN,URINE NEGATIVE (NEGATIVE); GLUCOSE, URINE NEGATIVE (NEGATIVE); KETONES,URINE NEGATIVE (NEGATIVE); URINE UROBILINOGEN 0.2 mg/dL (0.2 - 1)
[2024-05-07 15:27] LABS: WBC,URINE (MAN) >50 /HPF (0-5)
[2024-05-07 15:28] LABS: BACTERIA,URINE MODERATE /HPF; EPITHELIAL CELLS,URINE RARE /LPF
[2024-05-07] MEDS ORDERED: ONDANSETRON HCL INJ 2MG/ML 2ML 2 MG/ML VIAL IV PRN (15:45)
[2024-05-07] MEDS: SODIUM CHLORIDE 0.9% 1000ML 1,000 ML IV ONE (16:29)
[2024-05-07] MEDS ORDERED: DIPHENHYDRAMINE HCL 25 MG CAP PO PRN (16:30)
[2024-05-07] MEDS ORDERED: HYDRALAZINE HCL 20 MG/ML VIAL IV PRN (16:30)
[2024-05-07] MEDS ORDERED: DEXTROSE 50% SYRINGE 50 ML IV PRN (16:30)
[2024-05-07] MEDS ORDERED: POTASSIUM CHLORIDE 20 MEQ TAB CR PO PRN (16:30)
[2024-05-07] MEDS ORDERED: ACETAMINOPHEN 325 MG TAB PO PRN (16:30)
[2024-05-07] MEDS ORDERED: SIMETHICONE 80 MG CHEW PO PRN (16:30)
[2024-05-07] MEDS ORDERED: ALBUTEROL/IPRATROPIUM 3 ML NEB NEB PRN (16:30)
[2024-05-07] MEDS ORDERED: BENZONATATE 100 MG CAP PO PRN (16:30)
[2024-05-07] MEDS ORDERED: MELATONIN 5 MG TABLET PO PRN (16:30)
[2024-05-07] MEDS ORDERED: LIDOCAINE 4% PATCH TP PRN (16:30)
[2024-05-07] MEDS: Vancomycin IV 1 GM in SODIUM CHLORIDE 0.9% 250ML 250 ML IV ONE (16:32)
[2024-05-07] MEDS ORDERED: DOCUSATE SODIUM 100 MG CAP PO PRN (17:00)
[2024-05-07] MEDS: ENOXAPARIN SOD INJ 40 MG/0.4 ML SYR SC SCH (18:38)
[2024-05-08] VITALS (10 sets, daily range): BP systolic 142–178; BP diastolic 80–94; PULSE 52–79; RESP 17–20; TEMP 97.3–98.2; O2SAT 95–100
[2024-05-08 08:09] LABS: BASOPHILS # (AUTO) 0.1 (0.0-0.1); BASOPHILS % 0.8 % (0.0-1.0); EOSINOPHILS # (AUTO) 2.1 (0.0-0.4); EOSINOPHILS % 19.3 % (0.0-6.0); HEMATOCRIT 32.7 % (38.2-49.6); HEMOGLOBIN 11.2 g/dL (14.0-18.0); LYMPHOCYTES # (AUTO) 2.2 (1.0-3.2); LYMPHOCYTES % 20.6 % (18.0-39.1); MEAN CORPUSCULAR HEMOGLOBIN 32.7 pg (28-32); MEAN CORPUSCULAR HGB CONC 34.3 g/dL (31-35); MEAN CORPUSCULAR VOLUME 95.6 fL (81-99); MONOCYTES # (AUTO) 1.1 (0.2-0.8); MONOCYTES % 10.6 % (4.4-11.3); NEUTROPHILS # (AUTO) 5.1 (2.1-6.9); NEUTROPHILS % 48.3 % (38.7-80.0); PLATELET COUNT 294 x10e3/uL (140-360); RED BLOOD COUNT 3.42 x10e6/uL (4.3-5.7); RED CELL DISTRIBUTION WIDTH 13.7 % (11.7-14.4)
[2024-05-08 08:33] LABS: ALBUMIN 2.9 g/dL (3.5-5.0); ANION GAP 12.9 mmol/L (8-16); BILIRUBIN,TOTAL 0.6 mg/dL (0.2-1.2); CALCIUM 8.2 mg/dL (8.4-10.2); CREATININE, SERUM 1.69 mg/dL (0.72-1.25); POTASSIUM 3.9 mmol/L (3.5-5.1); TOTAL PROTEIN 5.9 g/dL (6.5-8.1)
[2024-05-08 09:15] LABS: CHOL/HDL RATIO 4.7 (3.9-4.7); MAGNESIUM 1.7 MG/DL (1.3-2.1)
[2024-05-08 09:22] LABS: TROPONIN I 0.01 ng/mL (0-0.300)
[2024-05-08 09:35] LABS: THYROID STIMULATING HORMONE 1.246 uIU/mL (0.350-4.940)
[2024-05-08] MEDS: PANTOPRAZOLE SOD 40 MG TABEC PO SCH (09:40)
[2024-05-08] MEDS ORDERED: VALSARTAN-HCTZ1 EAC2 PO (10:52)
[2024-05-08] MEDS ORDERED: ATORVASTATIN CA40 MG PO (10:52)
[2024-05-08] MEDS ORDERED: OXYBUTYNIN CHLO10 MG PO (10:52)
[2024-05-08] MEDS ORDERED: FENOFIBRATE48 MG PO (10:52)
[2024-05-08] MEDS ORDERED: GABAPENTIN100 MG PO (10:52)
[2024-05-08] MEDS ORDERED: FLOMAX0.4 MG PO (10:52)
[2024-05-08] MEDS ORDERED: NEURONTIN100 MG PO (10:52)
[2024-05-08] MEDS ORDERED: METOPROLOL SUCC25 MG PO (10:52)
[2024-05-08] MEDS ORDERED: DONEPEZIL HCL10 MG PO (10:52)
[2024-05-08] MEDS ORDERED: OMEPRAZOLE40 MG PO (10:52)
[2024-05-08 13:56] LABS: BASOPHILS % (MANUAL) 1 % (0-1.5); EOSINOPHILS % (MANUAL) 17 % (0-7); LYMPHOCYTES % (MANUAL) 19 % (19-48); MONOCYTES % (MANUAL) 6 % (3.4-9.0); NEUTROPHILS % (MANUAL) 56 % (40-74); PLATELET ESTIMATE ADEQUATE; PLATELET MORPHOLOGY COMMENT NORMAL; RBC MORPHOLOGY COMMENT NORMAL; REACTIVE LYMPHOCYTES 1
[2024-05-08] MEDS: SODIUM CHLORIDE 0.9% 1000ML 1,000 ML IV SCH (17:28)
[2024-05-09] VITALS (11 sets, daily range): BP systolic 149–193; BP diastolic 80–101; PULSE 63–95; RESP 16–21; TEMP 97–98.1; O2SAT 94–98
[2024-05-09 06:47] LABS: BASOPHILS # (AUTO) 0.1 (0.0-0.1); BASOPHILS % 0.7 % (0.0-1.0); EOSINOPHILS # (AUTO) 2.1 (0.0-0.4); EOSINOPHILS % 19.5 % (0.0-6.0); HEMATOCRIT 34.6 % (38.2-49.6); HEMOGLOBIN 11.7 g/dL (14.0-18.0); LYMPHOCYTES # (AUTO) 2.1 (1.0-3.2); LYMPHOCYTES % 19.4 % (18.0-39.1); MEAN CORPUSCULAR HEMOGLOBIN 32.3 pg (28-32); MEAN CORPUSCULAR HGB CONC 33.8 g/dL (31-35); MEAN CORPUSCULAR VOLUME 95.6 fL (81-99); MONOCYTES # (AUTO) 1.2 (0.2-0.8); MONOCYTES % 11.2 % (4.4-11.3); NEUTROPHILS # (AUTO) 5.3 (2.1-6.9); NEUTROPHILS % 48.8 % (38.7-80.0); PLATELET COUNT 301 x10e3/uL (140-360); RED BLOOD COUNT 3.62 x10e6/uL (4.3-5.7); RED CELL DISTRIBUTION WIDTH 13.3 % (11.7-14.4)
[2024-05-09 07:24] LABS: TROPONIN I 0.009 ng/mL (0-0.300)
[2024-05-09 07:29] LABS: ANION GAP 12.6 mmol/L (8-16); CALCIUM 8.5 mg/dL (8.4-10.2); CREATININE, SERUM 1.5 mg/dL (0.72-1.25); POTASSIUM 3.6 mmol/L (3.5-5.1)
[2024-05-09] MEDS: ASPIRIN 81 MG ENTERIC COATED PO SCH (08:28)
[2024-05-09] MEDS: DONEPEZIL HCL 5 MG TAB PO SCH (08:28)
[2024-05-09] MEDS: HYDRALAZINE HCL 25 MG TAB PO SCH (08:28)
[2024-05-09] MEDS: ATORVASTATIN 40 MG TAB PO SCH (08:29)
[2024-05-09] MEDS: FENOFIBRATE 48 MG TAB PO SCH (09:00)
[2024-05-09] MEDS: VALSARTAN 160 MG TAB PO SCH (18:00)
[2024-05-09] MEDS: HYDROCHLOROTHIAZIDE 25 MG TAB PO SCH (18:00)
[2024-05-09] MEDS: TAMSULOSIN HCL 0.4 MG CAP PO SCH (21:57)
[2024-05-10] VITALS (9 sets, daily range): BP systolic 132–165; BP diastolic 73–97; PULSE 73–95; RESP 17–19; TEMP 97.1–99; O2SAT 95–98
[2024-05-10 05:59] LABS: BASOPHILS # (AUTO) 0.1 (0.0-0.1); BASOPHILS % 0.6 % (0.0-1.0); EOSINOPHILS # (AUTO) 2.1 (0.0-0.4); EOSINOPHILS % 19.4 % (0.0-6.0); HEMATOCRIT 35.2 % (38.2-49.6); HEMOGLOBIN 12.1 g/dL (14.0-18.0); LYMPHOCYTES # (AUTO) 2.2 (1.0-3.2); LYMPHOCYTES % 20.3 % (18.0-39.1); MEAN CORPUSCULAR HEMOGLOBIN 32.5 pg (28-32); MEAN CORPUSCULAR HGB CONC 34.4 g/dL (31-35); MEAN CORPUSCULAR VOLUME 94.6 fL (81-99); MONOCYTES # (AUTO) 1.1 (0.2-0.8); MONOCYTES % 10.1 % (4.4-11.3); NEUTROPHILS # (AUTO) 5.3 (2.1-6.9); NEUTROPHILS % 49.3 % (38.7-80.0); PLATELET COUNT 325 x10e3/uL (140-360); RED BLOOD COUNT 3.72 x10e6/uL (4.3-5.7); RED CELL DISTRIBUTION WIDTH 13.5 % (11.7-14.4); WHITE BLOOD COUNT 10.66 x10e3/uL (4.8-10.8)
[2024-05-10 06:31] LABS: ANION GAP 13.7 mmol/L (8-16); CREATININE, SERUM 1.41 mg/dL (0.72-1.25); POTASSIUM 3.7 mmol/L (3.5-5.1)
[2024-05-10 07:38] LABS: EOSINOPHILS % (MANUAL) 19 % (0-7); LYMPHOCYTES % (MANUAL) 22 % (19-48); MONOCYTES % (MANUAL) 5 % (3.4-9.0); NEUTROPHILS % (MANUAL) 52 % (40-74); REACTIVE LYMPHOCYTES 2
[2024-05-10 07:39] LABS: PLATELET ESTIMATE ADEQUATE; PLATELET MORPHOLOGY COMMENT NORMAL; RBC MORPHOLOGY COMMENT NORMAL
[2024-05-10] MEDS ORDERED: VALSARTAN 160 MG TAB PO SCH (09:00)
[2024-05-10] MEDS ORDERED: HYDROCHLOROTHIAZIDE 25 MG TAB PO SCH (09:00)
[2024-05-10] MEDS ORDERED: ASPIRIN EC81 MG PO (13:49)
[2024-05-10] MEDS ORDERED: DIOVAN160 MG PO (13:49)
== END 2024-05-10 18:58 | disposition home or self-care (01) | DRG 683 ==
LOC: ER 12:00 → ERHOLD 15:35 → MED/SURG3 16:55
PROVIDERS: ADMIT Internal Medicine; ATTEND Internal Medicine
DX: N17.9 Acute kidney failure, unspecified (principal); C78.00 Secondary malignant neoplasm of unspecified lung; E87.20 Acidosis, unspecified; E86.1 Hypovolemia; I95.9 Hypotension, unspecified; E86.0 Dehydration; T50.2X5A Adverse effect of carbonic-anhydrase inhibitors, benzothiadiazides and other diuretics, initial encounter; Y92.009 Unspecified place in unspecified non-institutional (private) residence as the place of occurrence of the external cause; I10 Essential (primary) hypertension; G30.9 Alzheimer's disease, unspecified; F02.80 Dementia in other diseases classified elsewhere, unspecified severity, without behavioral disturbance, psychotic disturbance, mood disturbance, and anxiety; K21.9 Gastro-esophageal reflux disease without esophagitis; E78.5 Hyperlipidemia, unspecified; G89.29 Other chronic pain; M54.9 Dorsalgia, unspecified; G62.9 Polyneuropathy, unspecified; N40.0 Benign prostatic hyperplasia without lower urinary tract symptoms; Z11.52 Encounter for screening for COVID-19; Z90.5 Acquired absence of kidney; Z85.528 Personal history of other malignant neoplasm of kidney; Z85.828 Personal history of other malignant neoplasm of skin; Z86.73 Personal history of transient ischemic attack (TIA), and cerebral infarction without residual deficits; Z79.02 Long term (current) use of antithrombotics/antiplatelets; Z79.899 Other long term (current) drug therapy
CPT/HCPCS: 36415; 51700; 70450; 71045; 80048; 80053; 80061; 81001; 82550; 82607; 83036; 83605; 83735; 84443; 84484; 85025; 85610; 85730; 87040; 87086; 93005; 93306; 93880; 94799; 99284; J0692; J1650; J2470; J2543; J7030; J7050